=== PATIENT | female | born 1955 | race Asian ===

== ENCOUNTER 2021-12-15 13:41 | Outpatient (CLI) | payer BC, SELFPAY ==
[2021-12-15 21:29] LABS: Chloride* 102 mmol/L (96-114); Potassium* 4.5 mmol/L (3.6-5.1); Sodium* 136 mmol/L (135-149)
[2021-12-15 21:32] LABS: Carbon Dioxide* 28 mmol/L (20-32); Cholesterol* 248 mg/dL (90-199); Creatinine* 0.6 mg/dL (0.5-1.5); Estimated Glomerular Filt Rate 100 ml/min
[2021-12-15 21:33] LABS: Blood Urea Nitrogen* 13 mg/dL (7-30); Glucose* 89 mg/dL (60-115); HDL Cholesterol* 87 mg/dL (>=50); LDL Cholesterol Calculated 145 mg/dL (<100); Triglycerides* 81 mg/dL (40-149)
== END 2021-12-15 13:42 | disposition home or self-care (01) ==
LOC: OP CLINIC 13:41
PROVIDERS: PCP Physician Assistant Medical; Visit Provider Physician Assistant Medical
DX: Z00.00 Encounter for general adult medical examination without abnormal findings; I10 Essential (primary) hypertension; M06.9 Rheumatoid arthritis, unspecified; E78.5 Hyperlipidemia, unspecified; J45.20 Mild intermittent asthma, uncomplicated; L30.9 Dermatitis, unspecified
CPT/HCPCS: 36415; 80048; 80061; 82947

== ENCOUNTER 2021-12-21 07:58 | Outpatient (CLI) | payer BC, MEDICARE, SELFPAY | END 2021-12-21 07:59 | disposition home or self-care (01) | LOC: OP CLINIC 07:59 | PROVIDERS: PCP Physician Assistant Medical; Visit Provider Surgery | DX: Z12.11 Encounter for screening for malignant neoplasm of colon (principal); K63.5 Polyp of colon; Z86.010 Personal history of colon polyps | CPT/HCPCS: 45385; 88305; 99153; J2250; J3010 ==

== ENCOUNTER 2022-02-15 14:27 | Outpatient (CLI) | payer BC, MEDICARE, SELFPAY ==
--- NOTE | 2022-02-15 14:40 | CRLHL7_ITS ---
For Patients: As a result of the Century Cures Act, medical imaging exams and procedure reports are released immediately into your electronic medical record. You may view this report before your referring provider. If you have questions, please contact your health care provider. BILATERAL SCREENING MAMMOGRAM WITH COMPUTER-AIDED DETECTION TECHNIQUE: CC and MLO views were obtained. These mammographic images have been obtained using full-field digital technique. These mammographic images were interpreted with the benefit of computer-aided detection. COMPARISON FILM: 01/29/21, 12/01/17, 11/25/16. FINDINGS: There are scattered areas of fibroglandular density IMPRESSION: There is no radiographic evidence for malignancy. ASSESSMENT: BI-RADS Category 1: Negative RECOMMENDATION: Routine screening mammogram in 1 year. A lay language report of this examination will be provided to the patient. El Hammonds M.D. Diagnostic Radiologist [email or web address] TANYA/Dictated by: El Hammonds MD @ 02/16/2022 9:09:00 AM (Electronically Signed)
== END 2022-02-15 14:28 | disposition home or self-care (01) ==
LOC: MAMMO 14:28
PROVIDERS: PCP Physician Assistant Medical; Visit Provider Physician Assistant Medical
DX: Z12.31 Encounter for screening mammogram for malignant neoplasm of breast (principal)
CPT/HCPCS: 77063; 77067

== ENCOUNTER 2022-12-19 09:03 | Outpatient (CLI) | payer BC, SELFPAY | END 2022-12-19 09:04 | disposition home or self-care (01) | LOC: NFLDREF 12-20 08:36 | PROVIDERS: PCP Physician Assistant Medical; Referring Provider Physician Assistant Medical; Visit Provider Physician Assistant Medical | DX: E78.5 Hyperlipidemia, unspecified (principal); I10 Essential (primary) hypertension; M06.9 Rheumatoid arthritis, unspecified | CPT/HCPCS: 80053; 80061 ==

== ENCOUNTER 2023-01-11 14:17 | Outpatient (CLI) | payer BC, MEDICARE, SELFPAY ==
--- NOTE | 2023-01-11 14:30 | CRLHL7_ITS ---
For Patients: As a result of the Century Cures Act, medical imaging exams and procedure reports are released immediately into your electronic medical record. You may view this report before your referring provider. If you have questions, please contact your health care provider. DXA BONE MINERAL DENSITY STUDY Reason for exam: Asymptomatic menopausal state, screening. Current height (in): 62. Weight (lb): 135. Menopause age: 67. Ethnicity: White. 1. Have you had a previous hip or vertebral fracture? No. 2. Have you had any fractures during your adult life which did not result from significant trauma (e.g., auto accident)? No. 3. Did either of your parents have a hip fracture? No. 4. Do you smoke? No. 5. Have you ever taken Glucocorticoids? No. 6. Do you have rheumatoid arthritis? Yes. 7. Do you have secondary osteoporosis? No. 8. Do you drink 3 or more alcoholic drinks per day? No. 9. Are you being treated for osteoporosis? No. 10. Have you ever taken any of the following medications: Actonel, Evista, Fosamax, Miacalcin, Reclast, Boniva, Forteo, HRT (i.e., estrogen/hormone therapy), Protelos, Prolia, Vitamin D, Calcium, other ??? please specify. ANSWER: No. 11. Do you have any of the following medical conditions: Anorexia or bulimia, asthma or emphysema, end stage renal disease, hyperparathyroidism, any seizure disorders, cancer, inflammatory bowel diseases, hysterectomy, other ??? please specify. ANSWER: Yes, asthma or emphysema. 12. What was your maximum height (inches)? 63. 13. Do you perform weight bearing exercise regularly? No. 14. Do you regularly consume dairy products? Yes. 15. Do you drink caffeinated beverages? No. If female: 16. At what age did your period start? 15. 17. Are you premenopausal? No. 18. How many full-term pregnancies have you had? 3. 19. Have you ever missed your period for more than 6 months in a row (not including or menopause)? No. TECHNIQUE: Bone mineral density study was performed using the [employer]. FINDINGS: The results of the study expressed as bone mineral density (BMD) are as follows: Lumbar spine L2 to L4: BMD: 1.007 g/cm2. T-score: -0.7. Z-score: 1.3 Neck Left: BMD: 0.724 g/cm2. T-score: -1.1. Z-score: 0.5 Right: BMD: 0.783 g/cm2. T-score: -0.6. Z-score: 1.0 Total Left: BMD: 0.825 g/cm2. T-score: -1.0. Z-score: 0.3 Right: BMD: 0.889 g/cm2. T-score: -0.4. Z-score: 0.9 IMPRESSION: Osteopenia. FRAX 10-year Fracture Risk Major Osteoporotic Fracture: 11% Hip Fracture: 1.0% Reported Risk Factors: [place] () Neck BMD=0.724, BMI= 24.7, rheumatoid arthritis El Hammonds M.D. Diagnostic Radiologist [email or web address] DERRICK/[email or web address] moreland/Dictated by: El Hammonds MD @ 01/12/2023 9:44:00 AM (Electronically Signed)
== END 2023-01-11 14:18 | disposition home or self-care (01) ==
PROVIDERS: PCP Physician Assistant Medical; Visit Provider Physician Assistant Medical
DX: Z13.820 Encounter for screening for osteoporosis (principal); M85.88 Other specified disorders of bone density and structure, other site; Z78.0 Asymptomatic menopausal state
CPT/HCPCS: 77080

== ENCOUNTER 2023-02-20 13:19 | Outpatient (CLI) | payer BC, MEDICARE, SELFPAY ==
--- NOTE | 2023-02-20 13:40 | CRLHL7_ITS ---
For Patients: As a result of the Century Cures Act, medical imaging exams and procedure reports are released immediately into your electronic medical record. You may view this report before your referring provider. If you have questions, please contact your health care provider. BILATERAL SCREENING MAMMOGRAM WITH COMPUTER-AIDED DETECTION TECHNIQUE: CC and MLO views were obtained. These mammographic images have been obtained using full-field digital technique. These mammographic images were interpreted with the benefit of computer-aided detection. COMPARISON FILM: 02/15/22, 01/29/21, 12/02/15. FINDINGS: There are scattered areas of fibroglandular density IMPRESSION: There is no radiographic evidence for malignancy. ASSESSMENT: BI-RADS Category 1: Negative RECOMMENDATION: Routine screening mammogram in 1 year. A lay language report of this examination will be provided to the patient. El Hammonds M.D. Diagnostic Radiologist [email or web address] Transcribed: 2:50 pm DW/Dictated by: El Hammonds MD @ 02/21/2023 9:11:00 AM (Electronically Signed)
== END 2023-02-20 13:20 | disposition home or self-care (01) ==
LOC: MAMMO 13:20
PROVIDERS: PCP Physician Assistant Medical; Visit Provider Physician Assistant Medical
DX: Z12.31 Encounter for screening mammogram for malignant neoplasm of breast (principal)
CPT/HCPCS: 77067

== ENCOUNTER 2024-01-05 12:38 | Outpatient (CLI) | payer BC, MEDICARE, SELFPAY | END 2024-01-05 12:39 | disposition home or self-care (01) | PROVIDERS: PCP Physician Assistant Medical; Visit Provider Family Medicine | DX: E78.2 Mixed hyperlipidemia (principal); I10 Essential (primary) hypertension; Z11.59 Encounter for screening for other viral diseases; Z13.21 Encounter for screening for nutritional disorder | CPT/HCPCS: 80053; 80061; 82607; 86803 ==

== ENCOUNTER 2024-01-18 14:04 | Outpatient (CLI) | payer BC, MEDICARE, SELFPAY | END 2024-01-18 14:05 | disposition home or self-care (01) | LOC: FRMREF 14:04 | PROVIDERS: PCP Physician Assistant Medical; Visit Provider Family Medicine | DX: D64.9 Anemia, unspecified (principal); E78.2 Mixed hyperlipidemia | CPT/HCPCS: 82747 ==

== ENCOUNTER 2024-02-16 09:51 | Outpatient (CLI) | payer BC, MEDICARE, SELFPAY ==
--- NOTE | 2024-02-16 10:15 | CRLHL7_ITS ---
For Patients: As a result of the Cures Act, medical imaging exams and procedure reports are released immediately into your electronic medical record. You may view this report before your referring provider. If you have questions, please contact your health care provider. Examination: US abdominal aorta Indication: Abdominal aortic aneurysm screening. Technique: Clayton scale and color Doppler images of the aorta and common iliac arteries are obtained. Comparison: None Findings: Proximal aorta: 2.8 x 2.6 cm Mid aorta: 2.3 x 2.2 cm Distal aorta: 1.5 x 1.9 cm Right common iliac artery: 1.1 x 1.2 cm Left common iliac artery: 1.1 x 1.2 cm Impression: No abdominal aortic aneurysm. Dictated by El Hammonds MD @ 02/16/2024 12:12:04 PM (Electronically Signed)
== END 2024-02-16 09:52 | disposition home or self-care (01) ==
LOC: US 09:54
PROVIDERS: PCP Family Medicine; Visit Provider Family Medicine
DX: Z13.6 Encounter for screening for cardiovascular disorders (principal); Z87.891 Personal history of nicotine dependence
CPT/HCPCS: 76706

== ENCOUNTER 2024-03-15 13:11 | Outpatient (CLI) | payer BC, MEDICARE, SELFPAY ==
--- NOTE | 2024-03-15 13:40 | CRLHL7_ITS ---
For Patients: As a result of the Century Cures Act, medical imaging exams and procedure reports are released immediately into your electronic medical record. You may view this report before your referring provider. If you have questions, please contact your health care provider. BILATERAL SCREENING MAMMOGRAM WITH COMPUTER-AIDED DETECTION AND TOMOSYNTHESIS TECHNIQUE: CC and MLO views were obtained. These mammographic images have been obtained using full-field digital technique. These mammographic images were interpreted with the benefit of computer-aided detection. Breast Tomosynthesis was used in this interpretation. COMPARISON FILM: 02/20/23, 02/15/22, 01/29/21. FINDINGS: There are scattered areas of fibroglandular density. IMPRESSION: There is no radiographic evidence for malignancy. ASSESSMENT: BI-RADS Category 1: Negative RECOMMENDATION: Routine screening mammogram in 1 year. A lay language report of this examination will be provided to the patient. El Hammonds M.D. Diagnostic Radiologist [email or web address] SP/Dictated by: El Hammonds MD @ 03/21/2024 10:49:00 AM (Electronically Signed)
== END 2024-03-15 13:12 | disposition home or self-care (01) ==
LOC: MAMMO 13:11
PROVIDERS: PCP Family Medicine; Visit Provider Family Medicine
DX: Z12.31 Encounter for screening mammogram for malignant neoplasm of breast (principal)
CPT/HCPCS: 77063; 77067